=== PATIENT | male | born 1970 | race Caucasian/White ===

== ENCOUNTER 2020-06-15 09:09 | Emergency (ER) | payer MEDICAID, SELFPAY ==
--- NOTE | 2020-06-15 10:15 | DI.RAD_ITS ---
EXAM: XR hip pelvis adult Bl CLINICAL HISTORY: PAIN, NO TRAUMA TECHNIQUE: 2D digital imaging was performed. COMPARISON: No exams were available for comparison FINDINGS: BONES: No acute fracture is present. No bony destructive lesion is seen. JOINTS: No dislocation present. The hips are symmetric and well maintained. The sacroiliac joints an d symphysis pubis are unremarkable. SOFT TISSUE: Normal. IMPRESSION: Unremarkable examination. DATA REPOSITORY: RADIATION DOSE DELIVERED:
== END 2020-06-15 13:40 ==
PROVIDERS: Emergency Provider Registered Nurse Emergency; PCP Nurse Practitioner Family
DX: S76.011A Strain of muscle, fascia and tendon of right hip, initial encounter (principal); W19.XXXA Unspecified fall, initial encounter; X50.9XXA Other and unspecified overexertion or strenuous movements or postures, initial encounter; Z03.818 Encounter for observation for suspected exposure to other biological agents ruled out
CPT/HCPCS: 99283; 73502

== ENCOUNTER 2022-12-05 09:31 | Outpatient (REF) | payer MEDICAID, SELFPAY ==
[2022-12-05 16:12] LABS: Calculated LDL 88 mg/dL (<100); Cholesterol 176 mg/dL (<200); HDL Cholesterol 78 mg/dL (40-60); Triglyceride 53 mg/dL (<150)
== END 2022-12-05 09:32 | disposition home or self-care (01) ==
LOC: NCHCN 09:31
PROVIDERS: PCP Nurse Practitioner Family; Visit Provider Nurse Practitioner Family
DX: F41.8 Other specified anxiety disorders (principal); E66.8 Other obesity; Z13.220 Encounter for screening for lipoid disorders; Z00.00 Encounter for general adult medical examination without abnormal findings
CPT/HCPCS: 80061